=== PATIENT | male | born 1950 | race African-American/Black ===

== ENCOUNTER 2017-08-31 18:20 | Emergency (ER) | payer SELFPAY ==
--- NOTE | 2017-08-31 19:22 | EDPHY ---
H & P Stated Complaint: Left foot injury 1 week ago, increased swelling and pain. Time Seen by Provider: 08/31/17 19:21 HPI/ROS: HPI: This is a 67-year-old male who presents with Chief Complaint: Left foot no injury 1 week ago, increased swelling and pain. Location: Left big toe Quality: Pain Duration: 1 week Signs and Symptoms: No bleeding, no radiation, no numbness, no weakness, no tingling, no incontinence,+ decreased range of motion, + swelling, + pain, + redness Timing: Rapid onset Severity: Moderate Context: Patient is generally healthy, does not have a primary care provider, presents with nontraumatic pain of his left big toe that is moderate in nature, nonradiating, and has been worsening over the last week. Accompanied by redness and warmth. Denies any injury/trauma/fever. He does have decreased range of motion and pain with ambulation 2 weight-bearing on the extremity. No prior history of gout. Vegetarian. No history of diabetes. Recently returned from [place]. Modifying Factors: Has tried no [id number] medication Comment: ROS: see HPI Constitutional: No fever, no chills, no weight loss Eyes: No blurred vision Respiratory: No shortness of breath, no cough Cardiovascular: No chest pain Gastrointestinal: No nausea, no vomiting no diarrhea Genitourinary: No dysuria Extremities: No myalgias Neurologic: No weakness, no numbness Skin: No rashes Hematologic: No bruising, no bleeding MEDICAL/SURGICAL/SOCIAL HISTORY: Medical history: Generally healthy. Does not take any regular medications. Surgical history: Denies Social history: Works in the music industry CONSTITUTIONAL: Extremely well-appearing, polite and cooperative, male awake and alert, no obvious distress HEENT: Atraumatic and normocephalic. NECK: supple, no midline tenderness, flexion 45 degrees, extension 45 degrees, right and left lateral flexion 45 degrees. No meningismus. Cardiovascular: Normal S1/S2, regular rate, regular rhythm, without murmur rub or gallop. PULMONARY/CHEST: Symmetrical and nontender. no crepitus. Clear to auscultation bilaterally. Good air movement. No accessory muscle usage. ABDOMEN: Soft, nondistended, nontender, no ecchymosis. PELVIC: no pain with rocking; bilateral hips flexion 125 degrees, extension 30 degrees, with no pain internal rotation and no pain external rotation. BACK: No midline tenderness, no paraspinous spasm, deep tendon reflexes 2/2, no pain with straight leg raise EXTREMITIES: 2/2 DP and PT pulses, strength 5/5, left great toe DIP/PIP/MCP [id number] redness and warmth with decrease flexion/extension but good light touch sensation. no deformities, no clubbing, no cyanosis or edema. NEUROLOGICAL: no focal neuro deficits. GCS 15. Light touch sensation intact. SKIN: Warm and dry, no erythema. no rash. Good capillary refill. Source: Patient Exam Limitations: No limitations - Personal History Current Tetanus Diphtheria and Acellular Pertussis (TDAP): Yes - Medical/Surgical History Hx Asthma: No Hx Chronic Respiratory Disease: No Hx Diabetes: No Hx Cardiac Disease: No Hx Renal Disease: No Hx Cirrhosis: No Hx Alcoholism: No Hx HIV/AIDS: No Hx Splenectomy or Spleen Trauma: No Other PMH: PMH- HTN, bleeding ulcer, kidney stone. PSH- appy - Social History Smoking Status: Former smoker Constitutional: Initial Vital Signs Temperature (C) 36.4 C 08/31/17 18:21 Heart Rate 95 08/31/17 18:21 Respiratory Rate 16 08/31/17 18:21 Blood Pressure 163/103 H 08/31/17 18:21 O2 Sat (%) 98 08/31/17 18:21 O2 Delivery Mode Room Air Allergies/Adverse Reactions: No Known Allergies Allergy (Verified 07/01/14 07:15) Home Medications: Medication Instructions Recorded Hydrochlorothiazide 25 mg PO DAILY 12/07/11 [Hydrochlorothiazide 25 MG (RX)] Lisinopril [Zestril 20 mg (RX)] 20 mg PO DAILY 12/07/11 Indomethacin [Indocin 25 mg (*)] 50 mg PO TID #30 cap 08/31/17 predniSONE [predniSONE TAPER] 10 mg PO DAILY 6 Days ea 08/31/17 Medical Decision Making - Diagnostics Imaging Results: Imaging Impressions Foot X-Ray 08/31/17 18:27 Impression: 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 ED Course/Re-evaluation: Left foot x-ray ordered and shows no acute fracture/dislocation; degenerative changes noted on the 1st MTP Patient has no baseline renal function; CBC and BMP obtain Given p.o. prednisone 60 mg, colchicine 1.2 mg, indomethacin with adequate relief Placed in orthotic shoe and given crutches. Weightbearing as tolerated. No signs of neurovascular compromise/tenting of skin/compartment syndrome/ extremities and joints examined above and below area of concern and are neurovascularly intact/cellulitis/abscess. This patient was seen under the supervision of my secondary supervising physician. I evaluated care for this patient independently. Differential Diagnosis: Differential diagnosis includes but is not limited to cellulitis, tenosynovitis , abscess, gouty arthropathy. - Data Points Medications Given: Discontinued Medications Colchicine (Colchicine) 1.2 mg PO EDNOW ONE Stop: 08/31/17 19:40 Last Admin: 08/31/17 19:45 Dose: 1.2 mg Indomethacin (Indocin) 25 mg PO EDNOW ONE Stop: 08/31/17 19:40 Last Admin: 08/31/17 20:19 Dose: 25 mg Prednisone (Prednisone) 60 mg PO EDNOW ONE Stop: 08/31/17 19:40 Last Admin: 08/31/17 19:45 Dose: 60 mg Departure - Departure Disposition: Home, Routine, Self-Care Clinical Impression: Podagra, Acute gouty arthropathy Condition: Good Instructions: Low Purine Diet (ED), Gout (ED) Additional Instructions: Take Indomethacin TID x 5 days or until gout flare has stopped. Complete prednisone taper. Wear orthotic shoe and Use crutches to aid ambulation. Weight-bearing as tolerated. Follow low purine diet. Establish care with PCP in 1-2 weeks. . Referrals: [facility],. [Clinic] - As per Instructions Prescriptions: Indomethacin [Indocin 25 mg (*)] 50 mg PO TID #30 cap predniSONE [predniSONE TAPER] 10 mg PO DAILY 6 Days ea
[2017-08-31] MEDS ORDERED: COLCHICINE 0.6 MG CAP/TAB PO ONE (19:39)
[2017-08-31] MEDS ORDERED: INDOMETHACIN 25 MG CAP PO ONE (19:39)
[2017-08-31] MEDS ORDERED: predniSONE 20 MG TAB PO ONE (19:39)
[2017-08-31 20:31] VITALS: BP 144/113; PULSE 86; RESP 18; TEMP 98.1; O2SAT 94
== END 2017-08-31 20:35 | disposition home or self-care (01) ==
DX: M10.072 Idiopathic gout, left ankle and foot (principal); I10 Essential (primary) hypertension; Z87.891 Personal history of nicotine dependence
CPT/HCPCS: J7512; L4386

== ENCOUNTER 2018-04-13 13:26 | Emergency (ER) | payer SELFPAY ==
--- NOTE | 2018-04-13 14:12 | EDPHY ---
HPI/HX/ROS/PE/MDM Narrative: CHIEF COMPLAINT: Right hip pain HPI: The patient is a 67 y/o male complaining of right hip pain for the last week. He cannot identify any obvious precipitating injury or other cause for his pain. Occasional the pain goes down the back of his leg and he has associated mild pain in his lower back. Pain is aggravated by sitting up and standing. Lying down improves symptoms. He has tried ibuprofen for pain with mild alleviation. He denies specific weakness or numbness. He has not had any prior surgeries on this leg and reports he is generally healthy. REVIEW OF SYSTEMS: A comprehensive 10 system review of systems is otherwise negative aside from elements mentioned in the history of present illness. PMH: Denies SOCIAL HISTORY: Lives in [place]. [facility]. PHYSICAL EXAM: General:Patient is alert, in no acute distress. ENT:Eyes are normal to inspection. ENT inspection normal. Neck: Normal inspection. Full range of motion. Respiratory:No respiratory distress. Breath sounds normal bilaterally. Cardiovascular: Regular rate and rhythm. Strong peripheral pulses. Normal cap refill. Abdomen:The abdomen is nontender to palpation. There are no peritoneal signs. Back: Normal to inspection. No midline tenderness to palpation. Tenderness to right sciatic notch. Skin: Normal color. No rash. Warm and dry. Extremities: Normal appearance. Full range of motion. Neuro: Oriented x3. Normal motor function. Normal sensory function. ED Course: This is a 67 y/o male who presents with a 1-week history of atraumatic right hip pain that sometimes radiates down his leg and can be associated with lumbar back pain. He has mild tenderness at his right sciatic notch. He is neurovascularly intact. Symptoms most likely indicate a lumbar radiculopathy or sciatica, but will evaluate hip joint with x-ray as well. Right hip x-ray: negative Lumbar spine: no acute fractures, degenerative changes. Given his history of IV drug use, performed CBC to screen for elevated WBC that could indicate signs of infection. This was normal. Reassessed patient and discussed findings. Recommended treatment with Toradol injection here, Flexeril at home, and follow up with his PCP next week. Return precautions discussed. He is comfortable with this plan. - Data Points Imaging Results: Imaging Impressions Hip X-Ray 04/13/18 14:12 Impression: Normal. No explanation for pain. Lumbar Spine X-Ray 04/13/18 14:32 Impression: 1. Multilevel degenerative disk disease. 2. Minimal dextroscoliosis mid lumbar spine. 3. Minimal anterior subluxation of L4 and L5. Imaging: I viewed and interpreted images myself Laboratory Results: Laboratory Results 04/13/18 14:48 04/13/18 14:48 04/13/18 04/13/18 14:48 14:48 WBC 4.74 10^3/uL 10^3/uL (3.80-9.50) RBC 4.71 10^6/uL 10^6/uL (4.40-6.38) Hgb 14.5 g/dL g/dL (13.7-17.5) Hct 42.8 % % (40.0-51.0) MCV 90.9 fL fL (81.5-99.8) MCH 30.8 pg pg (27.9-34.1) MCHC 33.9 g/dL g/dL (32.4-36.7) RDW 13.0 % % (11.5-15.2) Plt Count 204 10^3/uL 10^3/uL (150-400) MPV 10.1 fL fL (8.7-11.7) Neut % (Auto) 44.2 % % (39.3-74.2) Lymph % (Auto) 33.3 % % (15.0-45.0) [place] % (Auto) 16.2 % H % (4.5-13.0) Eos % (Auto) 5.3 % % (0.6-7.6) Baso % (Auto) 0.6 % % (0.3-1.7) Nucleat RBC Rel Count 0.0 % % (0.0-0.2) Absolute Neuts (auto) 2.09 10^3/uL 10^3/uL (1.70-6.50) Absolute Lymphs (auto) 1.58 10^3/uL 10^3/uL (1.00-3.00) Absolute Monos (auto) 0.77 10^3/uL 10^3/uL (0.30-0.80) Absolute Eos (auto) 0.25 10^3/uL 10^3/uL (0.03-0.40) Absolute Basos (auto) 0.03 10^3/uL 10^3/uL (0.02-0.10) Absolute Nucleated RBC 0.00 10^3/uL 10^3/uL (0-0.01) Immature Gran % 0.4 % % (0.0-1.1) Immature Gran # 0.02 10^3/uL 10^3/uL (0.00-0.10) Sodium 140 mEq/L mEq/L (135-145) Potassium 4.1 mEq/L mEq/L (3.3-5.0) Chloride 110 mEq/L mEq/L (97-110) Carbon Dioxide 23 mEq/l mEq/l (22-31) Anion Gap 7 mEq/L L mEq/L (8-16) BUN 15 mg/dL mg/dL (7-23) Creatinine 1.0 mg/dL mg/dL (0.7-1.3) Estimated GFR > 60 Glucose 96 mg/dL mg/dL (70-100) Calcium 8.8 mg/dL mg/dL (8.5-10.4) General Time Seen by Provider: 04/13/18 14:05 Initial Vital Signs: Initial Vital Signs Temperature (C) 36.6 C 04/13/18 13:39 Heart Rate 67 04/13/18 13:39 Respiratory Rate 16 04/13/18 13:39 Blood Pressure 160/103 H 04/13/18 13:39 O2 Sat (%) 97 04/13/18 13:39 O2 Delivery Mode Room Air Allergies/Adverse Reactions: No Known Allergies Allergy (Verified 07/01/14 07:15) Home Medications: Medication Instructions Recorded Hydrochlorothiazide 25 mg PO DAILY 12/07/11 [Hydrochlorothiazide 25 MG (RX)] Lisinopril [Zestril 20 mg (RX)] 20 mg PO DAILY 12/07/11 Indomethacin [Indocin 25 mg (*)] 50 mg PO TID #30 cap 08/31/17 predniSONE [predniSONE TAPER] 10 mg PO DAILY 6 Days ea 08/31/17 Cyclobenzaprine [Flexeril] 10 mg PO TID #15 tab 04/13/18 Departure - Departure Disposition: Home, Routine, Self-Care Clinical Impression: Sciatica Qualifiers: Laterality: right Qualified Code(s): M54.31 - Sciatica, right side Condition: Good Instructions: Sciatica (ED) Additional Instructions: 1. Use Flexeril as prescribed when needed for severe pain. This medication can make you drowsy. Do not use prior to driving. 2. Follow up with your primary care provider next week for reevaluation. 3. Return to the ED for worsening of condition. Referrals: [facility],. [Clinic] - As per Instructions Prescriptions: Cyclobenzaprine [Flexeril] 10 mg PO TID #15 tab Report Scribed for: Vincenzo Pérez Report Scribed by: Ruth Haro Date of Report: 04/13/18 Time of Report: 14:16 Physician Review and Approval Statement: Portions of this note were transcribed by an ED scribe. I personally performed the history, physical exam, and medical decision making; and confirm the accuracy of the information in the transcribed note.
[2018-04-13 14:59] LABS: PLATELET COUNT 204 10^3/uL (150-400)
[2018-04-13] MEDS ORDERED: KETOROLAC 30 MG/1 ML SDV IM ONE (15:16)
[2018-04-13 15:48] VITALS: BP 151/106
== END 2018-04-13 15:54 | disposition home or self-care (01) ==
DX: M54.31 Sciatica, right side (principal)
CPT/HCPCS: J1885